=== PATIENT | male | born 1995 | race Caucasian/White ===

== ENCOUNTER 2017-02-02 12:09 | Emergency (ER) ==
[2017-02-02 12:18] VITALS: BP 123/79; TEMP 98.1; BMI 18.6
--- NOTE | 2017-02-02 12:30 | ED.PDOC ---
General ED Provider: Dr. PEARL SANDRA JR Chief Complaint: Knee Pain/Injury Stated Complaint: UNSURE EHRN INJURED LEFT KNEE..MUCH WORSE AFTER UP THIS MORNING WORK EXCUSE FOR TOMORROW[End]KNEE HURTS WORSE WHeN BENDS IT AND CAN'T SQUAT[End]injury yesterday 98.1 67 20 98% 123/79 4/10 [id number] PAIN DOES NT FEEL HE CAN MISS WORK- ok TO DEFER XRAY AND TRY LILA AND KNEE BRACE MAY HELP Time Seen by Physician: 12:23 Mode of Arrival: Walk-In Information Source: Patient Exam Limitations: No limitations Nursing and Triage Documentation Reviewed and Agree: No Review of Systems - Review Of Systems Constitutional: Reports: No symptoms Eyes: Reports: No symptoms Ears, Nose, Mouth, Throat: Reports: No symptoms Respiratory: Reports: No symptoms Cardiac: Reports: No symptoms GI: Reports: No symptoms : Reports: No symptoms Musculoskeletal: Reports: Back pain, Joint pain Skin: Reports: No symptoms Neurological: Reports: No symptoms Endocrine: Reports: No symptoms Hematologic/Lymphatic: Reports: No symptoms All Other Systems: Other Past Medical History - Past Medical History Endocrine: Reports: None Cardiovascular: Reports: None Respiratory: Reports: None Hematological: Reports: None Gastrointestinal: Reports: None Genitourinary: Reports: None Neuro/Psych: Reports: Bipolar Disorder Musculoskeletal: Reports: Back Pain Cancer: Reports: None Other Pertinent Past Medical History: HAS SEEN [facility] FOR [facility] md ROBLES AND XRAYS - Surgical History General Surgical History: Reports: Orthopedic (RECONSTRUCTIVE SURGERY ON WRIST) - Family History Family History: Reports: None - Social History Smoking Status: Former smoker Hx Substance Use: No Alcohol Screening: None - Immunizations Tetanus Shot up to Date: Yes Physical Exam - Physical Exam Appearance: Well-appearing, No pain distress, Well-nourished Neck: Supple Respiratory: Airway patent, Breath sounds clear, Breath sounds equal, Respirations nonlabored Musculoskeletal: Normal strength, ROM intact, No calf tenderness (TENDER LEF TKNEE PREPATELLAR EDEMA MILD FULL rom NO LIG LAXITY PAIN ABOT PATELLS NO ERYTHEMA) Skin: Warm, Dry, Normal color Neurological: Sensation intact, Motor intact, Reflexes intact, Cranial nerves intact, Alert, Oriented Psychiatric: Affect appropriate, Mood appropriate Critical Care Note - Critical Care Note Total Time (mins): 0 Course - Course Orders, Labs, Meds: Orders Category Date Time Status LILA [ED LILA WRAP] .ONCE EMERGENCY 02/02/17 12:37 Ordered Vital Signs: Temp Pulse Resp BP Pulse Ox 02/02/17 12:09 98.1 F 67 20 123/79 98 Departure - Departure Time of Disposition: 12:41 Disposition: HOME SELF-CARE Discharge Problem: Knee pain Instructions: Knee Pain (ED), Swollen Knee Joint (ED) Condition: Good Pt referred to PMD for follow-up: Yes Additional Instructions: ALEVE OR GENERIC TWO TWICE A DAY FOR PAIN AND SWELLING MAY TRY LILA WRAP OR KNEE SLEEVE FOLLOW UP PMD ONE WEEK DISCUSS SYMPTOMS AND ORTHOPEDIC CONSULT IF INDICATED FOR KNEE(OR BACK) Prescriptions: Hydrocodone Bit/Acetaminophen [[place] 5-325] 1 - 2 tab PO Q6HR PRN #12 tablet PRN Reason: pain Allergies/Adverse Reactions: Allergies aripiprazole [From [facility]] Adverse Reaction (Severe, Unverified 06/11/16 13:11) SEIZURE Home Medications: Ambulatory Orders Diazepam 10 mg PO QID 02/02/17 Hydrocodone Bit/Acetaminophen [[place] 5-325] 1 - 2 tab PO Q6HR PRN #12 tablet 12/14
== END 2017-02-02 12:54 | disposition home or self-care (01) ==
LOC: ED 12:09
DX: M25.562 Pain in left knee (principal); M25.462 Effusion, left knee
CPT/HCPCS: 99283

== ENCOUNTER 2017-02-04 13:01 | Outpatient (CLI) ==
[2017-02-04 14:11] LABS: BASOPHILS % (AUTO) 0.2 % (0.0-3.0); EOSINOPHILS # (AUTO) 0.2 K/ul (0.0-0.7); HEMATOCRIT 44.5 % (42.0-52.0); HEMOGLOBIN 15.3 g/dl (14.0-18.0); IMMATURE GRANULOCYTE % (AUTO) 0.3 % (0.0-5.0); LYMPHOCYTES % (AUTO) 19.4 (10.0-50.0); MEAN CORPUSCULAR HEMOGLOBIN 29.9 pg (27.0-31.0); MEAN CORPUSCULAR HGB CONC 34.4 (31.8-35.4); MEAN CORPUSCULAR VOLUME 87.1 fl (80.0-94.0); MONOCYTES % (AUTO) 9.9 (0-10); NEUTROPHILS # (AUTO) 7.1 K/ul (2.0-6.9); NEUTROPHILS % (AUTO) 68.2; PLATELET COUNT 243 10^3/uL (140-440); RED BLOOD COUNT 5.11 10^6/ul (4.70-6.10); WHITE BLOOD COUNT 10.44 K/ul (4.2-10.2)
== END 2017-02-04 13:02 | disposition home or self-care (01) ==
LOC: LAB 13:01
PROVIDERS: ATTEND Emergency Medicine
DX: M25.469 Effusion, unspecified knee (principal)
CPT/HCPCS: 36415; 84550; 85025

== ENCOUNTER 2017-02-14 09:40 | Outpatient (CLI) | END 2017-02-14 09:41 | LOC: RAD 09:40 | PROVIDERS: ATTEND Emergency Medicine | DX: M25.469 Effusion, unspecified knee (principal); M54.5 Low back pain ==